=== PATIENT | female | born 1985 | race African-American/Black ===

== ENCOUNTER 2017-06-15 20:11 | Emergency (ER) | payer OTHER ==
[~2017-06-15 20:11] MED LIST: AMOX500T PO
[2017-06-15 20:25] VITALS: BP 158/84; PULSE 100; RESP 20; TEMP 98.4; O2SAT 98
[2017-06-15] MEDS ORDERED: NORE1TAB43 PO (21:19)
--- NOTE | 2017-06-15 21:38 | PD ---
HPI Chief Complaint: Musculoskeletal Complaint Time Seen by Provider: 21:15 Travel History International Travel<30 days: No Contact w/Intl Traveler<30days: No Traveled to known affect area: No History of Present Illness HPI Patient is a 32-year-old female presents emergency Department with right lower extremity pain radiating to her groin down to her leg. Denies any back pain. She states that she does take oral contraceptive pills and recently was on a plane flight. She denies any shortness of breath but does endorse some mild chest discomfort in the left axillary area. Denies any fevers cough hemoptysis congestion or history of blood clots. Denies any traumatic injury to her right lower extremity PFSH Past Medical History Cardiovascular Problems: No Diminished Hearing: No Endocrine: No Gastrointestinal Disorders: No GERD: No Genitourinary: No Hiatal Hernia: No Immune Disorder: No Implanted Vascular Access Dvce: No Musculoskeletal: No Neurologic: No Psychiatric: No Reproductive: No Respiratory: No Sickle Cell Disease: Yes (SICKLE CELL TRAIT ) Ulcer: No Tetanus Vaccination: Unknown Influenza Vaccination: No ?: Unknown LMP: 3 WEEKS AGO . : 1 Para: 1 Past Surgical History Section: Yes Other Surgery: No Social History Alcohol Use: Yes (OCCASIONALLY) Tobacco Use: No Substance Use: No Allergies-Medications (Allergen,Severity, Reaction): Coded Allergies: No Known Allergies (Verified , 06/15/17) Reported Meds & Prescriptions Reported Meds & Active Scripts Active Reported Microgestin 1/20 (Norethindrone-Ethinyl Estradiol) 1-20 Mg-Mcg Tab 1 Tab PO DAILY Review of Systems Except as stated in HPI: all other systems reviewed are Neg Physical Exam Narrative GENERAL: Well-nourished, well-developed patient. SKIN: Focused skin assessment warm/dry. HEAD: Normocephalic. Atraumatic EYES: No scleral icterus. No injection or drainage. NECK: Supple, trachea midline. No JVD or lymphadenopathy. CARDIOVASCULAR: Regular rate and rhythm without murmurs, gallops, or rubs. RESPIRATORY: Breath sounds equal bilaterally. No accessory muscle use. GASTROINTESTINAL: Abdomen soft, non-tender, nondistended. MUSCULOSKELETAL: No cyanosis, or edema. Some minimal tenderness to the right calf, no cordlike structure palpable, minimal edema over the lateral malleolus of the ankle alone. BACK: Nontender without obvious deformity. No CVA tenderness. Data Data Last Documented VS Vital Signs Date Time Temp Pulse Resp B/P (MAP) Pulse Ox O2 Delivery O2 Flow Rate FiO2 06/15/17 23:52 86 18 97 06/15/17 23:45 Room Air 06/15/17 20:25 98.4 Orders Orders Us Leg Venous Doppler (06/15/17 21:37) Complete Blood Count With Diff (06/15/17 21:37) Comprehensive Metabolic Panel (06/15/17 21:37) D-Dimer (06/15/17 21:37) Prothrombin Time / Inr (Pt) (06/15/17 21:37) Act Partial Throm Time (Ptt) (06/15/17 21:37) Ecg Monitoring (06/15/17 21:37) Iv Access Insert/Monitor (06/15/17 21:37) Oximetry (06/15/17 21:37) Oxygen Administration (06/15/17 21:37) Sodium Chloride 0.9% Flush (Ns Flush) (06/15/17 21:45) Ed Urine Pregnancytest Poc (06/15/17 21:37) Labs Laboratory Tests Test 06/15/17 22:00 White Blood Count 7.1 TH/MM3 Red Blood Count 4.28 MIL/MM3 Hemoglobin 12.2 GM/DL Hematocrit 35.7 % Mean Corpuscular Volume 83.4 FL Mean Corpuscular Hemoglobin 28.5 PG Mean Corpuscular Hemoglobin Concent 34.1 % Red Cell Distribution Width 12.6 % Platelet Count 309 TH/MM3 Mean Platelet Volume 7.7 FL Neutrophils (%) (Auto) 53.4 % Lymphocytes (%) (Auto) 35.7 % Monocytes (%) (Auto) 5.7 % Eosinophils (%) (Auto) 4.3 % Basophils (%) (Auto) 0.9 % Neutrophils # (Auto) 3.8 TH/MM3 Lymphocytes # (Auto) 2.5 TH/MM3 Monocytes # (Auto) 0.4 TH/MM3 Eosinophils # (Auto) 0.3 TH/MM3 Basophils # (Auto) 0.1 TH/MM3 CBC Comment DIFF FINAL Differential Comment Prothrombin Time 10.1 SEC Prothromb Time International Ratio 0.9 RATIO Activated Partial Thromboplast Time 27.1 SEC D-Dimer Quantitative (PE/DVT) 0.21 MG/L FEU Blood Urea Nitrogen 10 MG/DL Creatinine 0.74 MG/DL Random Glucose 96 MG/DL Total Protein 7.1 GM/DL Albumin 3.7 GM/DL Calcium Level 8.5 MG/DL Alkaline Phosphatase 41 U/L Aspartate Amino Transf (AST/SGOT) 9 U/L Alanine Aminotransferase (ALT/SGPT) 18 U/L Total Bilirubin 0.9 MG/DL Sodium Level 139 MEQ/L Potassium Level 3.5 MEQ/L Chloride Level 108 MEQ/L Carbon Dioxide Level 25.7 MEQ/L Anion Gap 5 MEQ/L Estimat Glomerular Filtration Rate 112 ML/MIN [facility] Medical Decision Making Medical Screen Exam Complete: Yes Emergency Medical Condition: Yes Differential Diagnosis muscle strain, DVT, PE seems unlikely, ACS highly unlikely, pleurisy, Narrative Course SHEENT roomed emergency department, she appears well in no obvious distress. She was offered pain medicine declined. Ultrasound DVT of the right lower extremity negative, d-dimer is negative. At this time I think the patient is low enough to avoid radiation exposure associated with CT PE. Discussed symptomatic management returned ED criteria. Discussed need for repeat ultrasound in 1 week that she should pursue with her primary care physician if her swelling or pain have not resolved. Diagnosis Primary Impression: Leg pain, right Patient Instructions: General Instructions, RICE Therapy (GEN) Disposition: 01 DISCHARGE HOME Condition: Stable Manny Price MD Jun 15, 2017 21:38
[2017-06-15] MEDS ORDERED: SODIUM CHLORIDE 0.9% FLUSH 10 ML FLUSH IVF PRN (21:45)
[2017-06-15 22:11] LABS: AUTOMATED NEUTROPHIL # 3.8 TH/MM3 (1.8-7.7); BASOPHIL # 0.1 TH/MM3 (0-0.2); BASOPHIL % 0.9 % (0.0-2.0); EOSINOPHIL # 0.3 TH/MM3 (0-0.4); EOSINOPHIL % 4.3 % (0.0-4.0); HEMATOCRIT 35.7 % (35.0-46.0); HEMO FLAGS DIFF FINAL; LYMPH % 35.7 % (9.0-44.0); LYMPHOCYTE # 2.5 TH/MM3 (1.0-4.8); MEAN CELL VOLUME 83.4 FL (80.0-100.0); MEAN CORPUSCULAR HEMOGLOBIN 28.5 PG (27.0-34.0); MEAN CORPUSCULAR HGB CONC 34.1 % (32.0-36.0); MONO % 5.7 % (0.0-8.0); NEUT % 53.4 % (16.0-70.0); PLATELET COUNT 309 TH/MM3 (150-450); RED BLOOD COUNT 4.28 MIL/MM3 (4.00-5.30); RED CELL DISTRIBUTION WIDTH 12.6 % (11.6-17.2); WHITE BLOOD COUNT 7.1 TH/MM3 (4.0-11.0)
[2017-06-15 22:17] VITALS: O2SAT 97
[2017-06-15 22:22] LABS: CHLORIDE 108 MEQ/L (98-107); POTASSIUM 3.5 MEQ/L (3.5-5.1); SODIUM (NA) 139 MEQ/L (136-145)
[2017-06-15 22:25] LABS: ANION GAP 5 MEQ/L (5-15); BICARBONATE 25.7 MEQ/L (21.0-32.0); BLOOD UREA NITROGEN 10 MG/DL (7-18)
[2017-06-15 22:28] LABS: ALT (GPT) 18 U/L (10-53); AST (GOT) 9 U/L (15-37)
[2017-06-15 22:29] LABS: GLOMERULAR FILTRATION RATE 112 ML/MIN (>89)
[2017-06-15 22:30] LABS: APTT (PATIENT) 27.1 SEC (24.3-30.1); INTERNATIONAL NORMALIZED RATIO 0.9 RATIO; PROTHROMBIN TIME - PATIENT 10.1 SEC (9.8-11.6); TOTAL BILIRUBIN ADULT 0.9 MG/DL (0.2-1.0)
[2017-06-15 22:31] LABS: ALKALINE PHOSPHATASE 41 U/L (45-117)
[2017-06-15 22:37] VITALS: BP 141/78; PULSE 88; RESP 18; O2SAT 97
--- NOTE | 2017-06-15 23:35 | RADRPT ---
EXAM DATE/TIME: 06/15/2017 23:01 [place] COMPARISON: No previous studies available for comparison. INDICATIONS : Right leg pain. MEDICAL HISTORY : . Sickle cell trait. Leg pain. SURGICAL HISTORY : section. ENCOUNTER: Initial ACUITY: 4 - 6 days PAIN SCORE: 5/10 LOCATION: Right leg. TECHNIQUE: Venous ultrasound of the leg was performed from the inguinal ligament to the proximal calf. Real-hiren e, color Doppler and spectral tracing, compression and augmentation techniques were used. FINDINGS: There is normal compressibility of the deep venous system from the inguinal region to the proximal ca lf. No echogenic clot is seen in the lumen of the common femoral, femoral, popliteal, and posterior tibial veins. There is a normal response of the venous system to proximal and distal augmentation an d respiration. CONCLUSION: Normal examination. Antolin Morales MD on June 15, 2017 at 23:33 Board Certified Radiologist. This report was verified electronically.
[2017-06-15 23:45] VITALS: BP 140/82; PULSE 86; RESP 18; O2SAT 97
== END 2017-06-15 23:53 | disposition home or self-care (01) ==
LOC: PHED 20:11
DX: M79.604 Pain in right leg (principal)
CPT/HCPCS: 80053; 84703; 85025; 85379; 85610; 85730; 93971